=== PATIENT | male | born 1985 | race Caucasian/White ===

== ENCOUNTER 2020-11-13 19:24 | Inpatient (IN) ==
[2020-11-13 20:49] LABS: Bilirubin,Urine Negative (Negative); Blood,Urine Negative (Negative); Clarity,Urine Clear (Clear); Color,Urine Light-Yellow (Yellow); Glucose,Urine (UA) Normal (Normal); Ketones,Urine Negative (Negative); Leukocyte Esterase,Urine Negative (Negative); Nitrite,Urine Negative (Negative); PH,Urine 6.5 pH Units (5.0-8.0); Protein,Urine Negative (Neg-Trace); Specific Gravity,Urine 1.017 (1.010-1.025); Urobilinogen,Urine Normal (Normal)
[2020-11-13 20:58] LABS: Amphetamine Screen,Urine Negative ng/mL (Cutoff=1000); Barbiturate Screen,Urine Negative ng/mL (Cutoff=200); Benzodiazepines Screen,Urine Negative ng/mL (Cutoff=200); Cannabinoid Screen,Urine Negative ng/mL (Cutoff = 50); Cocaine Screen,Urine Negative ng/mL (Cutoff= 300); Opiate Screen,Urine Negative ng/mL (Cutoff=300); Phencyclidine Screen,Urine Negative ng/mL (Cutoff=25)
[2020-11-13 21:08] LABS: Acetaminophen < 10 mcg/mL (10-20); Salicylate < 2.5 mg/dL (15.0-30.0)
[2020-11-13 23:49] LABS: Influenza A PCR Negative (Negative); Influenza B PCR Negative (Negative); Resp. Syncytial Virus PCR Negative (Negative); SARS-CoV-2 by PCR (In House) Negative (Negative)
[2020-11-14] MEDS ORDERED: Acetaminophen 325 MG TABLET PO PRN (00:39)
[2020-11-14] MEDS ORDERED: *HR* LORazepam 2 MG/ML VIAL IM PRN (00:39)
[2020-11-14] MEDS ORDERED: Haloperidol Lactate 5 MG/ML VIAL IM PRN (00:39)
[2020-11-14] MEDS ORDERED: *HR* LORazepam 1 MG TABLET PO PRN (00:39)
[2020-11-14] MEDS ORDERED: haloperidoL 5 MG TABLET PO PRN (00:39)
[2020-11-14] MEDS ORDERED: Ibuprofen 400 MG TABLET PO PRN (00:39)
[2020-11-14] MEDS ORDERED: hydrOXYzine pamoate 25 MG CAPSULE PO PRN (00:39)
[2020-11-14] MEDS ORDERED: traZODone 50 MG TABLET PO PRN (00:39)
[2020-11-14] MEDS ORDERED: Mag Hydrox/Al Hydrox/Simeth 30 ML UDC PO PRN (09:41)
[2020-11-14] MEDS ORDERED: MOM Conc 10 ML UD.LIQ PO PRN (09:41)
[2020-11-14] MEDS: *HR* Metformin 500 MG TABLET PO SCH ×2 (12:37→17:04)
[2020-11-14] MEDS: ARIPiprazole 5 MG TABLET PO SCH (13:13)
[2020-11-15] MEDS: *HR* Metformin 500 MG TABLET PO SCH ×2 (10:01→17:34)
[2020-11-15] MEDS: ARIPiprazole 5 MG TABLET PO SCH (10:02)
[2020-11-15 20:30] VITALS: O2SAT 99
[2020-11-16] MEDS: *HR* Metformin 500 MG TABLET PO SCH (08:02)
[2020-11-16] MEDS: ARIPiprazole 5 MG TABLET PO SCH (08:02)
[2020-11-16 09:27] VITALS: BP 118/83; PULSE 103; TEMP 97.3
== END 2020-11-16 12:20 | disposition home or self-care (01) | DRG 885 ==
LOC: EMEROOARM 19:24 → 1ANU 11-14 00:14
PROVIDERS: ADMIT Psychiatry & Neurology Psychiatry; ATTEND Psychiatry & Neurology Psychiatry